=== PATIENT | male | born 1950 | race African-American/Black ===

== ENCOUNTER 2017-08-15 19:01 | Inpatient (IN) | payer MEDICARE ==
[~2017-08-15] VITALS: Ht 182.9 cm; Wt 74.7 kg
--- NOTE | ~2017-08-15 | EC ---
PATIENT:ADAIR GUO DATE OF SERVICE: 08/15/17 SEX: M MEDICAL RECORD: [id number] DATE OF : [birth year] LOCATION:D.M2 D.210 AGE OF PATIENT: 67 ADMISSION DATE: 08/15/17 REFERRING PHYSICIAN: INTERPRETING PHYSICIAN: ALETHA BRITO MD ECHOCARDIOGRAM REPORT ECHO CHARGES 4 ECHO COMPLETE CLINICAL DIAGNOSIS: CHF ECHOCARDIOGRAPHIC MEASUREMENTS (adult normal given) AC root (d.<3.7cm) 3.1 cm LV Septum d (<1.2 cm> 1.2 cm Valve Excursion 1.7 cm LV Septum (systole) 1.3 cm Left Atria (s.<4.0cm> 3.9 cm LVPW d(<1.2cm) 1.4 cm RV (d.<2.3cm) 4.8 cm LVPW (sytole) 1.5 cm LV diastole(<5.6CM) 6.6 cm MV E-F(>70mm/sec) cm LV systole 5.3 cm LVOT Diameter 1.5 cm MV exc.(>10mm) 1.6 cm Est.ejection fraction (50-75%) % Pericardial Effusion Y DOPPLER: LVIT cm/sec A 155 cm/sec E 109 cm/sec LA cm/sec RVSP 56 mmHg LVOT 98 cm/sec AOP1/2T m/s Asc. Ao 228 cm/sec RVOT 121 cm/sec RA cm/sec PA 134 cm/sec AV Gradient Peak 20.80mmHg AV Mean 14.9 mmHg AV Area 3.0 cm MV Gradient Peak 11.23mmHg MV Mean 5.23 mmHg MV Area cm COMMENTS: Photographic Machine Operator: Tae GILMAN Senior Gamemaster: 2 Dr. Rosenbaum TAPE# PACS DATE OF SERVICE: 08/16/2017 PROCEDURE: Transthoracic echocardiogram. FINDINGS: 1. Left ventricle appears to be mildly dilated. There are asynchronous wall motion abnormalities partially due to bundle branch block. Inflow characteristics are consistent with diastolic dysfunction. There is evidence of left ventricular hypertrophy. The overall ejection fraction is in the 25% to 30% range. The anterior septal area is hypokinetic and the septum has a D shape ECHOCARDIOGRAM REPORT [id number] ADAIR GUO to it, indicating the presence of possible pressure overload in the right ventricle. 2. The aortic valve is a normal trileaflet structure with no significant stenosis or regurgitation. 3. The mitral valve is difficult to visualize, but grossly normal. 4. The tricuspid valve has moderate tricuspid regurgitation. RVSP between 55 and 60 mmHg. 5. There is no significant pericardial effusion. 6. The pulmonic valve has trace to mild pulmonic insufficiency. 7. The right atrium is mildly enlarged. 8. The right ventricle is severely dilated and mildly hypokinetic. CONCLUSIONS: The patient has evidence of regional wall motion abnormality as well as left ventricular asynchronous wall motion. The patient also has diastolic dysfunction and evidence of moderate pulmonary hypertension and dilatation of the right-sided structures. The patient also is shown to have regional wall motion abnormalities. TRANSINT:[id number] Voice Confirmation ID: [id number] DOCUMENT ID: [id number] 08/27/2017 Edited to correct date of service, dm. ALETHA BRITO MD at 1001 CC: [id number] DICTATION DATE: 08/17/172054 GENERAL UTILITY WORKER: 08/18/17 0052 DIS IN 08/23/17 [address] [place] [address]
[2017-08-16 00:29] VITALS: BP 115/60
[2017-08-16 02:39] VITALS: BMI 21.7
[2017-08-16 04:29] VITALS: BP 127/71
[2017-08-16 07:55] VITALS: BP 145/67
[2017-08-16 11:03] VITALS: BMI 21.7
[2017-08-16 11:16] VITALS: Ht 182.9 cm; Wt 74.7 kg
[2017-08-16 11:45] LABS: BASOPHILS 0.1 % (0-2); EOSINOPHILS 1.6 % (0-7); HEMATOCRIT 24.8 % (42.0-54.0); IMMATURE GRANULOCYTES 0.2 % (0-5); LYMPHOCYTES 9.1 % (15-50); MCH 28.3 pg (26.0-34.0); MCHC 32.3 g/dL (31.0-37.0); MCV 87.6 fL (80.0-100.0); MONOCYTES 4.4 % (2-11); NEUTROPHILS 84.6 % (40-80); PLATELET COUNT 62 10x3/uL (130-400); RBC 2.83 10x6/uL (4.20-6.10); RDW 18.3 % (11.5-14.5); WBC 9.4 10x3/uL (4.8-10.8)
[2017-08-16 11:54] LABS: APTT 35.8 SECONDS (22.8-39.4); INR 1.08 (0.85-1.17); PROTIME 13.6 SECONDS (11.6-15.0)
[2017-08-16 12:04] LABS: PLATELET ESTIMATE DECREASED
[2017-08-16 12:10] VITALS: BP 139/75
[2017-08-16 12:10] LABS: ALBUMIN 1.9 g/dL (3.4-5.0); BILIRUBIN - TOTAL 0.5 mg/dL (0.2-1.3); CALCIUM 7.7 mg/dL (8.5-10.1); CARBON DIOXIDE 19.1 mmol/L (21.0-32.0); CREATININE - SERUM 2.3 mg/dL (0.6-1.3); MAGNESIUM - SERUM 1.7 mg/dL (1.8-2.4); POTASSIUM - SERUM 4.1 mmol/L (3.5-5.1); PROTEIN - SERUM 6.9 g/dL (6.4-8.2)
[2017-08-16 12:33] LABS: % SATURATION 93 % (15-55); IRON 164 ug/dl (35-150); TOTAL IRON BIND CAPACITY 176 ug/dl (260-445)
[2017-08-16 12:35] LABS: UNSAT IRON BIND CAPACITY 12 ug/dl (150-375)
[2017-08-16] MEDS ORDERED: LIPITOR10 MG PO (13:09)
[2017-08-16] MEDS ORDERED: CIPRO500 MG PO (13:09)
[2017-08-16] MEDS ORDERED: GLIMEPIRIDE2 MG PO (13:09)
[2017-08-16] MEDS ORDERED: MULTIPLE VITAMI1 TA1 PO (13:10)
[2017-08-16] MEDS ORDERED: OPTIVE EYE DROP30 ML EACH EYE (13:10)
[2017-08-16] MEDS ORDERED: VITAMIN D10000 UNI1 PO (13:12)
[2017-08-16] MEDS ORDERED: ZYVOX PREMIX600 MG IV (13:12)
[2017-08-16 13:49] LABS: APPEARANCE HAZY (CLEAR); BACTERIA MODERATE /hpf (NONE SEEN); BILIRUBIN NEGATIVE (NEGATIVE); COLOR YELLOW (YELLOW); EPITHELIAL CELLS 0-5 /hpf (0-5); GLUCOSE NEGATIVE (NEGATIVE); GRANULAR CAST 0-5 /lpf (NONE SEEN); KETONE NEGATIVE (NEGATIVE); MUCUS <1+ /lpf (NONE SEEN); NITRITE NEGATIVE (NEGATIVE); PROTEIN 1+ mg/dL (NEGATIVE); RED CELLS - URINE 0-5 /hpf (0-5); SPECIFIC GRAVITY 1.015 (1.005-1.020); UROBILINOGEN NORMAL (NORMAL)
[2017-08-16 14:59] VITALS: BP 117/64
[2017-08-16 20:59] VITALS: BP 103/52
[2017-08-17 00:36] VITALS: BP 114/64
[2017-08-17 05:06] LABS: ANION GAP 12.6 mmol/L (8-16); CALCIUM 7.1 mg/dL (8.5-10.1); CARBON DIOXIDE 20.7 mmol/L (21.0-32.0); CHOL - HDL RATIO 1.4 ratio (2.3-4.9); CREATININE - SERUM 2.3 mg/dL (0.6-1.3); LDL-HDL RATIO 0.3 ratio (1.5-3.5); POTASSIUM - SERUM 4.3 mmol/L (3.5-5.1)
[2017-08-17 05:17] VITALS: BP 123/68
[2017-08-17 05:22] LABS: BASOPHILS 0 % (0-2); EOSINOPHILS 0.9 % (0-7); HEMATOCRIT 20.8 % (42.0-54.0); IMMATURE GRANULOCYTES 0.3 % (0-5); MCHC 31.7 g/dL (31.0-37.0); MCV 88.1 fL (80.0-100.0); MONOCYTES 6.4 % (2-11); NEUTROPHILS 79.4 % (40-80); RBC 2.36 10x6/uL (4.20-6.10); RDW 18.4 % (11.5-14.5); WBC 7.8 10x3/uL (4.8-10.8)
[2017-08-17 05:24] LABS: HEMOGLOBIN 6.6 g/dL (13.5-17.5); PLATELET COUNT 48 10x3/uL (130-400)
[2017-08-17 08:39] VITALS: BP 118/64
[2017-08-17 10:19] LABS: FOLATE (FOLIC ACID) - SERUM 3.3 ng/mL (>3.0)
[2017-08-17 12:16] LABS: C-PEPTIDE 9.3 ng/mL (1.1-4.4)
[2017-08-17 14:23] VITALS: BP 125/72
[2017-08-17 16:53] VITALS: BP 128/70
[2017-08-17 20:38] VITALS: BP 126/69
[2017-08-18 00:18] VITALS: BP 119/64
[2017-08-18 05:48] VITALS: BP 135/77
[2017-08-18 06:03] LABS: BASOPHILS 0.1 % (0-2); EOSINOPHILS 1.1 % (0-7); HEMATOCRIT 24.2 % (42.0-54.0); HEMOGLOBIN 7.8 g/dL (13.5-17.5); IMMATURE GRANULOCYTES 0.2 % (0-5); LYMPHOCYTES 12.9 % (15-50); MCH 28.5 pg (26.0-34.0); MCHC 32.2 g/dL (31.0-37.0); MCV 88.3 fL (80.0-100.0); MONOCYTES 7.5 % (2-11); NEUTROPHILS 78.2 % (40-80); RBC 2.74 10x6/uL (4.20-6.10); RDW 17.9 % (11.5-14.5); WBC 8.1 10x3/uL (4.8-10.8)
[2017-08-18 06:05] LABS: PLATELET COUNT 44 10x3/uL (130-400)
[2017-08-18 06:21] LABS: ANION GAP 13.1 mmol/L (8-16); CALCIUM 7.9 mg/dL (8.5-10.1); CARBON DIOXIDE 21.9 mmol/L (21.0-32.0); CREATININE - SERUM 2.4 mg/dL (0.6-1.3)
[2017-08-18 09:08] VITALS: BP 181/76
[2017-08-18 11:52] VITALS: BP 187/70
[2017-08-18 16:32] VITALS: BP 104/67
[2017-08-18 20:00] VITALS: BP 128/74
[2017-08-18 20:16] LABS: HEMATOCRIT 25.2 % (42.0-54.0); HEMOGLOBIN 8.1 g/dL (13.5-17.5)
[2017-08-19 04:00] VITALS: BP 120/78
[2017-08-19 07:19] LABS: BASOPHILS 0.1 % (0-2); EOSINOPHILS 1.2 % (0-7); HEMOGLOBIN 8.3 g/dL (13.5-17.5); IMMATURE GRANULOCYTES 0.3 % (0-5); LYMPHOCYTES 14.5 % (15-50); MCH 28.4 pg (26.0-34.0); MCHC 31.9 g/dL (31.0-37.0); MEAN PLATELET VOLUME 9.9 fL (7.4-10.4); MONOCYTES 10.6 % (2-11); NEUTROPHILS 73.3 % (40-80); RBC 2.92 10x6/uL (4.20-6.10); RDW 17.4 % (11.5-14.5); WBC 7.4 10x3/uL (4.8-10.8)
[2017-08-19 07:22] LABS: PLATELET COUNT 86 10x3/uL (130-400)
[2017-08-19 07:32] LABS: INR 1.16 (0.85-1.17); PROTIME 14.3 SECONDS (11.6-15.0)
[2017-08-19 07:40] LABS: BILIRUBIN - TOTAL 0.6 mg/dL (0.2-1.3); CALCIUM 7.4 mg/dL (8.5-10.1); CARBON DIOXIDE 22.9 mmol/L (21.0-32.0); CHOL - HDL RATIO 1.5 ratio (2.3-4.9); CREATININE - SERUM 2.4 mg/dL (0.6-1.3); LDL-HDL RATIO 0.4 ratio (1.5-3.5); POTASSIUM - SERUM 3.9 mmol/L (3.5-5.1); PRE-ALBUMIN 15.4 mg/dL (18.0-35.7)
[2017-08-19 08:13] LABS: BILIRUBIN - DIRECT 0.29 mg/dL (0.00-0.30); BILIRUBIN - INDIRECT 0.31 mg/dL (0.00-1.00)
[2017-08-19 08:59] VITALS: BP 133/75
[2017-08-19 13:10] VITALS: BP 130/77
[2017-08-19 15:09] LABS: CORTISONE (COMPOUND E) 0.79 ug/dL (())
[2017-08-19 15:55] VITALS: BP 148/89
[2017-08-19 16:46] LABS: BILIRUBIN - DIRECT 0.42 mg/dL (0.00-0.30); BILIRUBIN - INDIRECT 0.27 mg/dL (0.00-1.00); BILIRUBIN - TOTAL 0.69 mg/dL (0.2-1.3)
[2017-08-19 17:02] LABS: HEMOGLOBIN 8.7 g/dL (13.5-17.5)
[2017-08-19 20:15] VITALS: BP 119/69
[2017-08-20 01:33] VITALS: BP 120/79
[2017-08-20 05:53] VITALS: BP 124/75
[2017-08-20 06:55] LABS: BASOPHILS 0.1 % (0-2); EOSINOPHILS 1.3 % (0-7); HEMATOCRIT 25.3 % (42.0-54.0); HEMOGLOBIN 8.2 g/dL (13.5-17.5); IMMATURE GRANULOCYTES 0.3 % (0-5); LYMPHOCYTES 15.1 % (15-50); MCH 28.5 pg (26.0-34.0); MCHC 32.4 g/dL (31.0-37.0); MCV 87.8 fL (80.0-100.0); MEAN PLATELET VOLUME 11.2 fL (7.4-10.4); NEUTROPHILS 70.2 % (40-80); PLATELET COUNT 80 10x3/uL (130-400); RBC 2.88 10x6/uL (4.20-6.10); RDW 17.4 % (11.5-14.5); WBC 6.9 10x3/uL (4.8-10.8)
[2017-08-20 07:13] LABS: ALBUMIN 1.8 g/dL (3.4-5.0); ANION GAP 13.5 mmol/L (8-16); BILIRUBIN - TOTAL 0.5 mg/dL (0.2-1.3); CALCIUM 7.5 mg/dL (8.5-10.1); CARBON DIOXIDE 21.3 mmol/L (21.0-32.0); CREATININE - SERUM 2.2 mg/dL (0.6-1.3); POTASSIUM - SERUM 3.8 mmol/L (3.5-5.1); PROTEIN - SERUM 6.8 g/dL (6.4-8.2)
[2017-08-20 08:07] VITALS: BP 141/88
[2017-08-20 11:28] VITALS: BP 144/90
[2017-08-20 15:22] VITALS: BP 141/84
[2017-08-20 18:29] LABS: HEMATOCRIT 30.2 % (42.0-54.0)
[2017-08-20 18:30] LABS: HEMOGLOBIN 9.9 g/dL (13.5-17.5)
[2017-08-20 19:00] VITALS: BP 116/64
[2017-08-21] VITALS: BP 134/81
[2017-08-21 04:00] VITALS: BP 124/70
[2017-08-21 05:27] LABS: BASOPHILS 0.1 % (0-2); EOSINOPHILS 0.9 % (0-7); HEMATOCRIT 28.6 % (42.0-54.0); HEMOGLOBIN 9.4 g/dL (13.5-17.5); IMMATURE GRANULOCYTES 0.2 % (0-5); LYMPHOCYTES 13.4 % (15-50); MCHC 32.9 g/dL (31.0-37.0); MCV 88.3 fL (80.0-100.0); MEAN PLATELET VOLUME 10.4 fL (7.4-10.4); MONOCYTES 10.9 % (2-11); NEUTROPHILS 74.5 % (40-80); PLATELET COUNT 74 10x3/uL (130-400); RBC 3.24 10x6/uL (4.20-6.10); RDW 17.3 % (11.5-14.5); WBC 8.2 10x3/uL (4.8-10.8)
[2017-08-21 05:44] LABS: ANION GAP 15.4 mmol/L (8-16); CALCIUM 8.5 mg/dL (8.5-10.1); CARBON DIOXIDE 21.5 mmol/L (21.0-32.0); CREATININE - SERUM 2.2 mg/dL (0.6-1.3); POTASSIUM - SERUM 3.9 mmol/L (3.5-5.1)
[2017-08-21 08:02] VITALS: BP 147/89
[2017-08-21 11:34] VITALS: BP 130/81
[2017-08-21 12:18] LABS: HAPTOGLOBIN 268 mg/dL (34-200)
[2017-08-21 13:48] LABS: HEMATOCRIT 28.5 % (42.0-54.0); HEMOGLOBIN 9.4 g/dL (13.5-17.5)
[2017-08-21 14:23] LABS: HEPATITIS C ANTIBODY <0.1 (0.0-0.9)
[2017-08-21 16:13] VITALS: BP 140/89
[2017-08-21 20:00] VITALS: BP 118/80
[2017-08-21 22:53] LABS: HEMATOCRIT 27.9 % (42.0-54.0); HEMOGLOBIN 9.2 g/dL (13.5-17.5)
[2017-08-22] VITALS (12 sets, daily range): BP systolic 125–155; BP diastolic 65–97
[2017-08-22 06:34] LABS: HEMOGLOBIN 9.9 g/dL (13.5-17.5)
[2017-08-22 06:44] LABS: INR 1.19 (0.85-1.17); PROTIME 14.7 SECONDS (11.6-15.0)
[2017-08-22 13:05] LABS: HEMATOCRIT 29.6 % (42.0-54.0); HEMOGLOBIN 9.5 g/dL (13.5-17.5)
[2017-08-22 20:09] LABS: HEMATOCRIT 30.8 % (42.0-54.0); HEMOGLOBIN 10.2 g/dL (13.5-17.5)
[2017-08-23 04:00] VITALS: BP 131/89
[2017-08-23 09:15] VITALS: BP 137/87
[2017-08-23 11:39] VITALS: BP 137/89
[2017-08-23 11:40] LABS: BASOPHILS 0.1 % (0-2); EOSINOPHILS 0.3 % (0-7); HEMATOCRIT 28.2 % (42.0-54.0); HEMOGLOBIN 9.3 g/dL (13.5-17.5); IMMATURE GRANULOCYTES 0.2 % (0-5); LYMPHOCYTES 9.7 % (15-50); MCH 29.2 pg (26.0-34.0); MCV 88.4 fL (80.0-100.0); MEAN PLATELET VOLUME 10.3 fL (7.4-10.4); MONOCYTES 5.2 % (2-11); NEUTROPHILS 84.5 % (40-80); PLATELET COUNT 97 10x3/uL (130-400); RBC 3.19 10x6/uL (4.20-6.10); RDW 17.4 % (11.5-14.5); WBC 9.7 10x3/uL (4.8-10.8)
[2017-08-23] MEDS ORDERED: LASIX40 MG PO (14:12)
[2017-08-23] MEDS ORDERED: FLORAJEN3 CAPS460 MG PO (14:12)
[2017-08-23] MEDS ORDERED: LEVAQUIN500 MG PO (14:13)
[2017-08-23 16:43] VITALS: BP 145/75
[2017-09-07] MEDS ORDERED: COZAAR50 MG PO (10:32)
== END 2017-08-23 18:10 | disposition home health service (06) | DRG 377 ==
LOC: D.M2 19:01
PROVIDERS: Family Medicine; General Practice; Internal Medicine Gastroenterology; Internal Medicine Nephrology
PROC: 3E0G8TZ Introduction of Destructive Agent into Upper GI, Via Natural or Artificial Opening Endoscopic (ICD-10-PCS; 2017-08-19)
PROC: 0W3P8ZZ Control Bleeding in Gastrointestinal Tract, Via Natural or Artificial Opening Endoscopic (ICD-10-PCS; 2017-08-19)
PROC: 3E0G8GC Introduction of Other Therapeutic Substance into Upper GI, Via Natural or Artificial Opening Endoscopic (ICD-10-PCS; principal; 2017-08-19 13:00)
PROC: 07DR3ZX Extraction of Iliac Bone Marrow, Percutaneous Approach, Diagnostic (ICD-10-PCS; 2017-08-22)
DX: K25.4 Chronic or unspecified gastric ulcer with hemorrhage (principal); I50.23 Acute on chronic systolic (congestive) heart failure; E11.52 Type 2 diabetes mellitus with diabetic peripheral angiopathy with gangrene; I96 Gangrene, not elsewhere classified; I13.0 Hypertensive heart and chronic kidney disease with heart failure and stage 1 through stage 4 chronic kidney disease, or unspecified chronic kidney disease; N17.9 Acute kidney failure, unspecified; E11.649 Type 2 diabetes mellitus with hypoglycemia without coma; E11.22 Type 2 diabetes mellitus with diabetic chronic kidney disease; N18.9 Chronic kidney disease, unspecified; E78.5 Hyperlipidemia, unspecified; J44.9 Chronic obstructive pulmonary disease, unspecified; E83.42 Hypomagnesemia; D64.9 Anemia, unspecified; N45.2 Orchitis; I27.20 Pulmonary hypertension, unspecified; D69.6 Thrombocytopenia, unspecified; K21.9 Gastro-esophageal reflux disease without esophagitis; I77.811 Abdominal aortic ectasia; K44.9 Diaphragmatic hernia without obstruction or gangrene; K26.9 Duodenal ulcer, unspecified as acute or chronic, without hemorrhage or perforation; K29.70 Gastritis, unspecified, without bleeding; K29.80 Duodenitis without bleeding; Z87.891 Personal history of nicotine dependence

== ENCOUNTER → 2017-09-07 07:03 | Outpatient (CLI) | payer MEDICARE ==
[~2017-09-07] VITALS: Ht 182.9 cm; Wt 77.3 kg
--- NOTE | ~2017-09-07 | HEMODYNAMI ---
PATIENT:ADAIR GUO MEDICAL RECORD: [id number] : [birth year] LOCATION:[facility] ADMISSION DATE: 09/07/17 Generatedon:09/07/201710:00 Patient name: ADAIR GUO Patient #: [id number] SSN: [id number] : 1950 Date of study: 09/07/2017 Page: Of Hemodynamic Procedure Report Patient Data Patient Demographics Procedure consent was obtained First Name: ADAIR Gender: Male Last Name: SARI : 1950 Patient #: [id number] Age: 67 year(s) Race: Black SSN: [id number] Additional ID: [id number] Contact details Address: [address] [place] [address] State: [place] City: [place] Zip code: [address] Admission Admission Data Admission Date: 09/07/2017 Admission Time: 7:03 Arrival Date: 09/07/2017 Arrival Time: 7:03 Admit Source: Other Insurance Payor: Medicare Height (in.): 72 BSA: 1.99 (m2) Height (cm.): 182.88 BMI: 23.06 (kg/m2) Weight (lbs.): 170 Weight (kg.): 77.11 Lab Results Lab Result Date: 09/07/2017 Lab Result Time: 0:00 Biochemistry Name Units Result Min Max BUN mg/dl 34 --(----)-* 7 18 Creatinine mg/dl 2 --(----)-* 0.6 1.3 CBC Name Units Result Min Max Hemoglobin g/dl 9.2 *-(----)-- 13.5 17.5 Procedure Procedure Types Cath Procedure Diagnostic Procedure C [facility] w/Coronaries Sedation Charges Moderate Sedation up to 15 minutes Procedure Description Procedure Date Procedure Date: 09/07/2017 Procedure Start Time: 9:37 Procedure End Time: 9:53 Procedure Staff Name Function Álvaro Chawla MD Performing Physician Leni Choe RT Monitor Vikki Vaughn RT Scrdorota Zelaya RN Nurse Procedure Data Cath Procedure Fluoroscopy Diagnostic fluoroscopy Total fluoroscopy Time: 2.4 time: 2.4 min min Diagnostic fluoroscopy Total fluoroscopy dose: 409 dose: 409 mGy mGy Contrast Material Contrast Material Type Amount (ml) Isovue 300 64 Entry Location Entry Primary Successful Side Size Upsize Upsize Entry Closure Succes sful Closure Location (Fr) 1 (Fr) 2 (Fr) Remarks Device Remarks Femoral Right 5 Fr Exoseal artery Estimated blood loss: 5 ml Diagnostic catheters Device Type Used For End Catheter Placement MULTIPACK JL 4.0 5Fr Left Coronary catheter Angiography MULTIPACK 3DRC 5Fr Right Coronary catheter Angiography MULTIPACK Pigtail 5 Fr LV Angiography catheter Procedure Complications No complications Procedure Medications Medication Administration Route Dosage Oxygen NC 2 l/min Lidocaine 2% added to field 20 Heparin Flush Bag added to field 2 bags (1000units/500ml NS) 0.9% NaCl I.V. 100 ml/hr Versed I.V. 1 mg Fentanyl I.V. 25 mcg Hemodynamics Rest BSA: 1.99 (m2) HGB: 9.2 (g/dl) O2 Consumption: Estimated: 236.44 (ml/min) O2 Con sumption indexed: Estimated:118.81 (ml/min/m) Heart Rate: 77 (bpm) Pressure Samples Time Site Value (mmHg) Purpose Heart Use Rate(bpm) 9:48 LV 133/9,24 EDP 77 9:48 AO 141/79(105) Pullback 77 9:48 LV 128/18,23 Pullback 77 Gradients Valve Time Site 1 Site 2 Mean SEP/DFP Peak To Heart Use (mmHg) (sec/min) Peak Rate (mmHg) (bpm) Aortic 9:48 LV AO 0 6 0 77 128/18,23 141/79(105) Calculations Valve P-P Mean Valve Index Valve Source Name Gradient Area Flow (cm2) Aortic 0 0 0 0 Snapshots Pre Cath Intra NCS Post Cath Vital Signs Time Heart Resp SPO2 etCO2 NIBP (mmHg) Rhythm Pain Sedation Rate (ipm) (%) (mmHg) Status Level (bpm) 9:20:28 79 16 100 24 144/88(125) NSR 0 (11) 10(A) , No pain 9:24:38 79 15 100 27.7 151/101(135) NSR 0 (11) 10(A) , No pain 9:28:50 78 16 100 25.5 153/100(136) NSR 0 (11) 10(A) , No pain 9:33:02 79 16 100 25.5 141/105(130) NSR 0 (11) 10(A) , No pain 9:37:12 78 16 100 44.2 134/97(120) NSR 0 (11) 10(A) , No pain 9:41:22 77 15 100 17.2 139/85(123) NSR 0 (11) 9(A) , No pain 9:45:32 76 22 100 27 129/92(111) NSR 0 (11) 9(A) , No pain 9:49:47 76 22 100 21.7 132/90(113) NSR 0 (11) 9(A) , No pain 9:55:13 77 24 98 5.2 164/139(157) NSR 0 (11) 10(A) , No pain Medications Time Medication Route Dose Verified Delivered Reason Notes Effec tiveness by by 9:22:41 Oxygen NC 2 Álvaro Buffie used for l/min [place] Zelaya RN procedure 9:22:47 Lidocaine 2% added 20ml Álvaro Álvaro for local to vial [place] Chawla MD anesthetic field FREEDMAN 9:22:53 Heparin Flush added 2 Álvaro Álvaro used for Bag to bags Denton Chawla MD procedure (1000units/500ml field FREEDMAN NS) 9:23:02 0.9% NaCl I.V. 100 Álvaro Buffie Per ml/hr Denton Zelaya RN physician 9:38:55 Versed I.V. 1 mg Álvaro Buffie for Denton Zelaya RN sedation 9:39:01 Fentanyl I.V. 25 [place]o [place] [facility] [place] Zelaya RN sedation Procedure Log Time Note 8:48:50 Informed consent obtained and on chart 8:49:38 Vikki Vaughn RT(R) sent for patient. Start room use. 8:49:39 Time tracking: Regular hours 8:49:43 Plan of Care:Hemodynamics will remain stable., Cardiac rhythm will remain stable., Comfort level will be maintained., Respiratory function will remain adequate., Patient/ family verbilizes understanding of procedure., Procedure tolerated without complication., Recovers from procedure without complications.. 8:52:47 Admit Source: Other 8:52:49 Arrival Date: 09/07/2017 7:03:00 AM 8:52:59 Insurance Payor : Medicare 8:53:12 Patient Height : 72 inches 8:53:15 Patient Weight : 170 lbs 8:54:39 Lab Result : Creatinine 2 mg/dl 8:54:39 Lab Result : BUN 34 mg/dl 8:54:39 Lab Result : Hemoglobin 9.2 g/dl 9:10:44 Patient received from Pre/Post Procedure Room to CCL 2 Alert and oriented. Tansferred to table in Supine position. 9:10:45 Warm blankets applied, and david hugger turned on for patient comfort. 9:10:46 Correct patient and procedure confirmed by team. 9:10:47 ECG and BP/O2 sat monitors applied to patient. 9:19:18 Vital chart was started 9:19:20 Baseline sample Acquired. 9:19:26 Rhythm: sinus rhythm 9:19:33 Full Disclosure recording started 9:19:46 H&P Date Dictated: 09/07/2017 Within 30 days and on chart., H&P Addendum completed by physician on day of procedure. (MUST COMPLETE FOR ALL OUTPATIENTS). 9:19:48 Pre-procedure instructions explained to patient. 9:19:48 Pre-op teaching completed and patient verbalized understanding. 9:19:49 Family in waiting room. 9:19:50 Patient NPO since Midnight. 9:19:53 Is the patient allergic to Iodine/contrast media? No. 9:19:54 Was the patient premedicated? No 9:19:56 Is patient on blood thinner?Yes 9:19:59 ACC The patient was administered the following blood thiners within the last 24 hours: ACCPlavix 9:20:01 Patient diabetic? Yes. 9:20:02 If diabetic: On Metformin? No 9:22:41 Oxygen 2 l/min NC was administered by Nicholas Zelaay RN; used for procedure; 9::47 Lidocaine 2% 20ml vial added to field was administered by Álvaro Chawla MD; for local anesthetic; 9:22:53 Heparin Flush Bag (1000units/500ml NS) 2 bags added to field was administered by Álvaro Chawla MD; used for procedure; 9:23:02 0.9% NaCl 100 ml/hr I.V. was administered by Nicholas Zelaya RN; Per physician; 9:24:21 Previous problem with sedation/anesthesia? No ? 9:24:23 Snore? Yes 9:24:25 Sleep apnea? No 9:24:26 Deviated septum? No 9:24:27 Opens mouth fully? Yes 9:24:28 Sticks out tongue? Yes 9:24:32 Airway obstruction? Yes chf 9:24:34 Dentures? No ? 9:25:09 Patient pain scale 0/10 ?. 9:25:15 IV patent on arrival in left forearm with 0.9% NaCl at [facility]. 9:25:17 Lab results completed and on chart. 9:25:22 Right groin area was prepped with chlora-prep and draped in sterile fashion 9:25:23 Alarms reviewed by R. N. 9:25:24 Sharps counted by scrub and verified by R.N. 9:32:02 Zero performed for pressure channel P1 9:37:01 Physician arrived 9:37:01 --------ALL STOP TIME OUT------ 9:37:02 Final Timeout: patient, procedure, and site verified with staff and physician. All members of the team are in agreement. 9:37:03 Right groin site verified by team. 9:37:06 Physical assessment completed. ASA score P 2 - A patient with mild systemic disease as per Álvaro Chawla MD. 9:37:10 Sedation plan: IV Moderate Sedation Medication:Versed, Fentanyl 9:37:13 Procedure started. 9:37:16 Local anesthetic to right femoral artery with Lidocaine 2% by Álvaro Chawla MD.INITIAL ACCESS ONLY 9:37:18 Access obtained with 4Fr micropunture. 9:38:13 Use device set Femoral Dx 9:38:15 ACIST Syringe (26263) opened to sterile field. 9:38:15 Bag Decanter (2002) opened to sterile field. 9:38:15 Medline Cath Pack ([id number]) opened to sterile field. 9:38:16 SHEATH 5FR Potter (VEX073) opened to sterile field. 9:38:16 DIAGNOSTIC WIRE .035 260cm J wire (740522) opened to sterile field. 9:38:31 ACIST Hand Control (84522) opened to sterile field. 9:38:32 ACIST Manifold (07582) opened to sterile field. 9:38:32 DIAGNOSTIC Multipack 5Fr catheter set (UI7715) opened to sterile field. 9:38:33 Tegaderm 4 x 4 (1626W) opened to sterile field. 9:38:55 Versed 1 mg I.V. was administered by Nicholas Zelaya RN; for sedation; 9:39:01 Fentanyl 25 mcg I.V. was administered by Nicholas Zelaya RN; for sedation; 9:39:29 A 5 Fr sheath was inserted into the Right Femoral artery 9:40:05 A MULTIPACK JL 4.0 5Fr catheter was advanced over the wire and used for Left Coronary Angiography. 9:40:29 LCA angiography performed. 9:40:32 Injector settings: Ml/sec: 3, Volume: 6, 9:42:01 Catheter removed. 9:42:10 A MULTIPACK 3DRC 5Fr catheter was advanced over the wire and used for Right Coronary Angiography. 9:44:09 RCA angiography performed. 9:44:12 Injector settings: Ml/sec: 3, Volume: 6, 9:45:53 Bilateral renal angiography performed. 9:46:10 Injector settings: Ml/sec: 3, Volume: 6, 9:46:46 Catheter removed. 9:46:53 A MULTIPACK Pigtail 5 Fr catheter was advanced over the wire and used for LV Angiography. 9:48:04 LV hemodynamics recorded. 9:48:05 LV gram done using PADILLA 9:48:08 Injector settings: Ml/sec: 5, Volume: 15, 9:48:57 EF : 15 % 9:49:05 Catheter removed. 9:51:17 EXOSEAL 5Fr (EX500) opened to sterile field. 9:51:53 Sheath removed intact; hemostasis achieved with Exoseal to the Right Femoral artery. 9:51:55 Procedure ended.(Physican Out) 9:52:47 Fluoroscopy time 02.40 minutes. 9::52 Fluoroscopy dose: 409 mGy 9:52:52 Flurop Dose total: 409 9:52:57 Contrast amount:Isovue 300 64ml. 9:52:59 Sharps counted by scrub and verified by R.N. 9:53:02 Insertion/operative site no bleeding no hematoma. 9:53:06 Post-op/insertion site Right Femoral artery dressed using a 4 x 4 and Tegaderm. 9:53:09 Post right femoral artery:stable 9:53:10 Post Procedure Pulses reassessed and unchanged 9:53:12 Post procedure rhythm: unchanged. 9:53:16 Estimated blood loss: 5 ml 9:53:17 Post procedure instruction explained to patient.Patient verbalizes understanding. 9:53:18 Patient needs reinforcement of post procedure teaching. 9:53:29 Procedure type changed to Cath procedure, Diagnostic procedure, LHC, LHC w/Coronaries, Sedation Charges, Moderate Sedation up to 15 minutes 9:53:30 Procedure and supply charges have been captured, reviewed, submitted and are correct. 9:53:35 Procedure Complication : No complications 9:53:37 Vital chart was stopped 9:53:38 See physician's report for complete and final results. 9:53:41 Report given to Pre/Post Procedure Room. 9:53:44 Patient transfered to Pre/Post Procedure Room with Stretcher. 9:53:46 Procedure ended. 9:53:46 Full Disclosure recording stopped 9:53:50 End room use (Document Last) Device Usage Item Name Manufacture Quantity Catalog Hospital Part Current Minimal L ot# / Number Charge Number Stock Stock Serial# Code ACIST Acist 1 [id number] [id number] 781535 [id number] 20 Syringe Medical (44726) Systems Inc Bag Microtek 1 891540 39540 220023 5 Decanter Medical Inc. () Medline Cardinal 1 [id number] 042875 93457 851242 5 Cath Pack Health ([id number]) SHEATH 5FR Terumo 1 GSZ123 343836 836266 836834 40 Potter (NGA298) DIAGNOSTIC St Neeraj 1 737805 245310 802110 877691 30 WIRE .035 260cm J wire (689023) ACIST Hand Acist 1 51288 421038 225428 265074 5 Control Medical (00444) Systems Inc ACIST Acist 1 66578 258926 776217 200681 5 Manifold Medical (89614) Systems Inc DIAGNOSTIC Cardinal 1 ER1738 490814 83757 006854 30 Multipack Health 5Fr catheter set (LA1567) Tegaderm 4 3M 1 1626W 411648 151241 829149 5 x 4 (1626W) MULTIPACK Cardinal 1 202854 5 JL 4.0 5Fr Health catheter MULTIPACK Cardinal 1 144124 5 3DRC 5Fr Health catheter MULTIPACK Cardinal 1 854180 5 Pigtail 5 Health Fr catheter EXOSEAL 5Fr Cardinal 1 EX500 045289 695185 910142 10 (EX500) Health Signature Audit [place] Stage Time Signature Unsigned Intra-Procedure 09/07/2017 Leni Choe 10:00:08 AM RT(R) Signatures Monitor : Leni Choe RT Signature : Date : Time : [id number] [place] [address]
[~2017-09-07 07:03] MED LIST: CIPRO500 MG PO; COZAAR50 MG PO; FLORAJEN3 CAPS460 MG PO; GLIMEPIRIDE2 MG PO; LASIX40 MG PO; LEVAQUIN500 MG PO; LIPITOR10 MG PO; MULTIPLE VITAMI1 TA1 PO; OPTIVE EYE DROP30 ML EACH EYE; VITAMIN D10000 UNI1 PO; ZYVOX PREMIX600 MG IV
[2017-09-07 07:48] VITALS: BP 140/92; Ht 182.9 cm; Wt 77.3 kg
[2017-09-07 08:13] LABS: BASOPHILS 0.2 % (0-2); EOSINOPHILS 0.3 % (0-7); HEMATOCRIT 28.2 % (42.0-54.0); HEMOGLOBIN 9.2 g/dL (13.5-17.5); IMMATURE GRANULOCYTES 0.3 % (0-5); LYMPHOCYTES 10.6 % (15-50); MCHC 32.6 g/dL (31.0-37.0); MCV 91.9 fL (80.0-100.0); MONOCYTES 6.3 % (2-11); NEUTROPHILS 82.3 % (40-80); RBC 3.07 10x6/uL (4.20-6.10); RDW 21.1 % (11.5-14.5); WBC 10.7 10x3/uL (4.8-10.8)
[2017-09-07 08:16] LABS: ANION GAP 16.1 mmol/L (8-16); CARBON DIOXIDE 24.9 mmol/L (21.0-32.0)
[2017-09-07 08:31] LABS: PLATELET COUNT 213 10x3/uL (130-400)
== END | disposition home or self-care (01) ==
LOC: D.CATH 07:03
PROVIDERS: Internal Medicine Cardiovascular Disease
DX: I42.9 Cardiomyopathy, unspecified (principal); I50.9 Heart failure, unspecified; I20.0 Unstable angina; Z01.812 Encounter for preprocedural laboratory examination

== ENCOUNTER 2017-12-11 06:31 | Outpatient (CLI) | payer MEDICARE ==
[~2017-12-11] VITALS: Ht 182.9 cm; Wt 63.6 kg
--- NOTE | ~2017-12-11 | HEMODYNAMI ---
PATIENT:ADAIR GUO MEDICAL RECORD: [id number] : 48 LOCATION:[facility] ADMISSION DATE: 12/11/17 Generatedon:12/11/20179:21 Patient name: ADAIR GUO Patient #: [id number] SSN: [id number] : 1950 Date of study: 12/11/2017 Page: Of Hemodynamic Procedure Report Patient Data Patient Demographics Procedure consent was obtained First Name: ADAIR Gender: Male Last Name: SARI : 1950 Patient #: [id number] Age: 67 year(s) Race: Black SSN: [id number] Additional ID: [id number] Contact details Address: [address] [place] [address] State: [place] City: [place] Zip code: [address] Past Medical History Allergies: No known allergies Admission Admission Data Admission Date: 12/11/2017 Admission Time: 6:31 Procedure Procedure Types Cath Procedure Diagnostic Procedure PPM/ICD Internal Cardiac Defib Dual Procedure Description Procedure Date Procedure Date: 12/11/2017 Procedure Start Time: 8:45 Procedure Staff Name Function Álvaro Chawla MD Performing Physician Darshana Isaac RT Monitor Nicholas Zelaya RN Nurse Boubacar Juan RT Scrub Procedure Data Cath Procedure Fluoroscopy Diagnostic fluoroscopy Total fluoroscopy Time: 0 time: 0 min min Diagnostic fluoroscopy Total fluoroscopy dose: 33 dose: 33 mGy mGy Contrast Material Contrast Material Type Amount (ml) Visipaque 320 10 Estimated blood loss: 5 ml Procedure Complications No complications Procedure Medications Medication Administration Route Dosage Ancef (1Gm/50ml NS) I.V.P.B 1 g Oxygen NC 2 l/min Lidocaine 1% added to field 20 Ancef Irrigation Topical 1 g (1gm/500ml NS) Versed I.V. 1 mg Fentanyl I.V. 25 mcg Fentanyl I.V. 25 mcg Versed I.V. 0.5 mg Fentanyl I.V. 25 mcg Hemodynamics Rest Heart Rate: 87 (bpm) Snapshots Pre Cath Intra NCS Post Cath Vital Signs Time Heart Resp SPO2 etCO2 NIBP (mmHg) Rhythm Pain Sedation Rate (ipm) (%) (mmHg) Status Level (bpm) 8:24:33 87 13 96 36.8 146/89(122) NSR 0 (11) 10(A) , No pain 8:28:27 87 18 94 38.3 145/93(122) NSR 0 (11) 10(A) , No pain 8:32:18 87 14 96 39 148/96(119) NSR 0 (11) 10(A) , No pain 8:36:14 85 16 100 43.5 137/82(113) NSR 0 (11) 10(A) , No pain 8:40:07 84 15 100 40.5 137/83(114) NSR 0 (11) 9(A) , No pain 8:44:01 83 15 100 35.3 139/78(111) NSR 0 (11) 9(A) , No pain 8:47:54 83 15 99 40.5 135/84(118) NSR 0 (11) 10(A) , No pain 8:51:48 82 14 98 39.8 130/77(100) NSR 0 (11) 9(A) , No pain 8:55:37 81 14 98 39.8 129/83(110) NSR 0 (11) 9(A) , No pain 8:59:28 81 14 98 37.5 125/77(100) NSR 0 (11) 9(A) , No pain 9:03:18 80 15 98 35.3 122/77(102) NSR 0 (11) 9(A) , No pain 9:07:07 57 17 99 35.3 127/81(109) NSR 0 (11) 9(A) , No pain 9:10:57 80 16 100 33.8 129/78(106) NSR 0 (11) 10(A) , No pain 9:15:17 83 15 100 32.3 138/91(114) NSR 0 (11) 10(A) , No pain 9:19:08 82 10 36 131/88(112) NSR 0 (11) 10(A) , No pain Medications Time Medication Route Dose Verified Delivered Reason Notes Effective ness by by 8:22:29 Ancef I.V.P.B 1 g Álvaro Buffie used for (1Gm/50ml Denton Zelaya RN procedure NS) 8:26:52 Oxygen NC 2 Álvaro Buffie used for l/min Denton Zelaya RN procedure 8:27:03 Lidocaine added 20ml Álvaro Álvaro for local 1% to vial Denton Chawla MD anesthetic field x 2 8:27:21 Ancef Topical 1 g Álvaro Álvaro used for Irrigation Denton Chawla MD procedure (1gm/500ml NS) 8:37:04 Versed I.V. 1 mg Álvaro Buffie for Denton Zelaya RN sedation 8:37:10 Fentanyl I.V. 25 Álvaro Buffie for mcg Denton Zelaya RN sedation 8:45:52 Fentanyl I.V. 25 Álvaro Buffie for mcg Denton Zelaya RN sedation 8:57:18 Versed I.V. 0.5 Álvaro Buffie for mg Denton Zelaya RN sedation 8:57:25 Fentanyl I.V. 25 Álvaro Buffie for mcg Denton Zelaya RN sedation Procedure Log Time Note 8:00:39 Nicholas Zelaya RN sent for patient. Start room use. 8:06:45 Time tracking: Regular hours (M-F 7:00 - 5:00) 8:06:49 Plan of Care:Hemodynamics will remain stable., Cardiac rhythm will remain stable., Comfort level will be maintained., Respiratory function will remain adequate., Patient/ family verbilizes understanding of procedure., Procedure tolerated without complication., Recovers from procedure without complications.. 8:11:46 Patient received from Pre/Post Procedure Room to [facility] 3 Alert and oriented. Tansferred to table in Supine position. 8:11:48 Warm blankets applied, and david hugger turned on for patient comfort. 8:11:48 Correct patient and procedure confirmed by team. 8:11:50 Signed procedure consent form obtained from patient. 8:11:51 ECG and BP/O2 sat monitors applied to patient. 8:22:29 Ancef (1Gm/50ml NS) 1 g I.V.P.B was administered by Nicholas Zelaya RN; used for procedure; 8:23:47 Vital chart was started 8:26:47 Rhythm: sinus rhythm 8:26:48 Full Disclosure recording started 8:26:52 Oxygen 2 l/min NC was administered by Nicholas Zelaya RN; used for procedure; 8:27:03 Lidocaine 1% 20ml vial x 2 added to field was administered by Álvaro Chawla MD; for local anesthetic; 8:27:21 Ancef Irrigation (1gm/500ml NS) 1 g Topical was administered by Álvaro Chawla MD; used for procedure; 8:27:38 H&P Date Dictated: 12/06/2017 Within 30 days and on chart., H&P Addendum completed by physician on day of procedure. (MUST COMPLETE FOR ALL OUTPATIENTS). 8:27:40 Pre-procedure instructions explained to patient. 8:27:40 Pre-op teaching completed and patient verbalized understanding. 8:27:43 Family in patients room. 8:27:45 Patient NPO since Midnight. 8:28:01 Patient allergic to No known allergies 8:28:03 Is the patient allergic to Iodine/contrast media? No. 8:28:06 Is patient on blood thinner?No 8:28:10 Patient diabetic? Yes. 8:28:11 If diabetic: On Metformin? No 8:28:14 Previous problem with sedation/anesthesia? No ? 8:28:16 Snore? No 8:28:17 Sleep apnea? No 8:28:18 Deviated septum? No 8:28:19 Opens mouth fully? Yes 8:28:20 Sticks out tongue? Yes 8:28:27 Airway obstruction? Yes COPD 8:28:29 Dentures? No ? 8:28:36 Patient pain scale 0/10 ?. 8:28:54 IV patent on arrival in left forearm with 0.9% NaCl at O. 8:28:59 Lab results completed and on chart. 8:29:06 Left chest area was prepped with chlora-prep and draped in sterile fashion 8:29:07 Alarms reviewed by R. N. 8:29:08 Sharps counted by scrub and verified by R.N. 8:29:35 Medtronic sales representative womens health Howard Sanchez present for procedure. 8:29:46 Pre sharps counted by scrub and verified by RN: Sutures: 2; Sponges: 5; Stick needles: 1; Skin needles: 2; Blade: 1; Cautery: 1 8:29:55 Grounding pad site Right thigh. 8:29:56 Grounding pad site free from injury. 8:31:40 Baseline sample Acquired. 8:31:53 MICROPUNCTURE 4FR Cook (P64669) opened to sterile field. 8:31:54 Tegaderm 4 x 4 (1626W) opened to sterile field. 8:31:55 Stapler Skin 35W Proximate Plus (PMW35) opened to sterile field. 8:31:57 Cautery Tip Business System Consultant opened to sterile field. 8:31:58 Cautery Pushbutton Pencil opened to sterile field. 8:31:59 2-0 Silk 685H opened to sterile field. 8:32:00 2-0 Vicryl Plus OUN094 opened to sterile field. 8:32:11 Immobilizer Sling Medium opened to sterile field. 8:36:23 Final Timeout: patient, procedure, and site verified with staff and physician. All members of the team are in agreement. 8:36:26 Left chest site verified by team. 8:36:29 Physical assessment completed. ASA score P 3 - A patient with severe systemic disease as per Álvaro Chawla MD. 8:36:32 Sedation plan: IV Moderate Sedation Medication:Versed, Fentanyl 8:37:04 Versed 1 mg I.V. was administered by Nicholas Zelaya RN; for sedation; 8:37:10 Fentanyl 25 mcg I.V. was administered by Nicholas Zelaya RN; for sedation; 8:45:19 Lidocaine 1% was administered to left subclavicular area by Álvaro Chawla MD . 8:45:52 Fentanyl 25 mcg I.V. was administered by Nicholas Zelaya RN; for sedation; 8:47:07 Incision made to left subclavicular area. 8:53:47 Generator pocket made/opened. 8:55:30 Access obtained with 4Fr micropunture. 8:56:12 Left subclavian vein accessed with 9Fr Peel Away Sheath. 8:57:18 Versed 0.5 mg I.V. was administered by Nicholas Zelaya RN; for sedation; 8:57:25 Fentanyl 25 mcg I.V. was administered by Nicholas Zelaya RN; for sedation; 8:59:16 Procedure type changed to Cath procedure, Diagnostic procedure, PPM/ICD, Internal Cardiac Defib Dual 9:00:44 Medtronic 6798F79 ICD Lead opened to sterile field. 9:01:39 Ventricular lead inserted and advanced. 9:01:47 Ventricular lead tested. 9:03:42 Ventricular lead attachment was completed with 2-0 silk. 9:06:07 AICD was attached to lead(s) and inserted into pocket. 9:06:44 Subcutaneous closure was completed with 2-0 vicryl. 9:07:02 MICROPUNCTURE 4FR Cook (B33219) opened to sterile field. 9:11:13 VISIA Single Chamber ICD DVB1D4 opened to sterile field. 9:13:39 Skin closure was completed with 35mm Garrick. 9:13:45 Procedure ended.(Physican Out) 9:13:59 Lt Chest incision was dressed with gauze eyepad and tegaderm. 9:14:10 Contrast amount:Visipaque 320 10ml. 9:14:16 Fluoroscopy time 00.00 minutes. 9:14:22 Fluoroscopy dose: 33 mGy 9:14:22 Flurop Dose total: 33 9:14:23 Sharps counted by scrub and verified by R.N. 9:14:57 Post sharps counted by scrub and verified by RN: Sutures: 2; Sponges: 5; Stick needles: 1; Skin needles: 2; Blade: 1; Cautery: 1 9:15:11 Insertion/operative site no bleeding no hematoma. 9:15:17 Post procedure rhythm: unchanged. 9:15:20 Estimated blood loss: 5 ml 9:15:25 Post-procedure physical assessment completed. ASA score P 3 - A patient with severe systemic disease as per Álvaro Chawla MD. 9:15:34 Post Chest area:stable, clean and dry 9:16:21 Procedure Complication : No complications 9:20:08 Post procedure instruction explained to patient.Patient verbalizes understanding. 9:20:09 Patient needs reinforcement of post procedure teaching. 9:20:29 Procedure and supply charges have been captured, reviewed, submitted and are correct. 9:20:29 Vital chart was stopped 9:20:30 See physician's report for complete and final results. 9:20:34 Report given to Pre/Post Procedure Room. 9:20:55 CALLED FOR PCU BED. NO BEDS AVAILABLE AT THIS TIME. 9:21:00 Patient transfered to Pre/Post Procedure Room with Stretcher. 9:21:21 End room use (Document Last) Device Usage Item Name Manufacture Quantity Catalog Hospital Part Current Minimal Lot# / Number Charge Number Stock Stock Serial# Code MICROPUNCTURE [employer] 2 [id number] 5 4FR [employer]en ([id number]) Tegaderm 4 x 3M 1 1626W 001710 062336 [id number] 5 4 (1626W) Stapler Skin Unknown 1 PMW35 [id number] 445389 [id number] 5 35W Proximate Plus (PMW35) Cautery Tip Microtek 1 [id number] 039923 327539 327061 5 [employer] Cautery Microtek 1 [id number] 09573 806480 5 [facility] [employer] [facility] Pencil 2-0 Silk 685H Ethicon 1 685H 342363 04988 184470 5 2-0 Vicryl Ethicon 1 [id number] 112285 730430 000703 5 Plus [id number] Immobilizer Kinards 1 [id number] 329279 412445 [id number] 5 Sling Medium Health Medtronic Medtronic 1 [id number] 041161 306282 663336 5 [id number] 2096S14 ICD 2018-03-08 Lead VISIA Single Medtronic 1 [id number] 021049 200690 [id number] 5 [id number] Chamber ICD 2019-04-14 DVB1D4 Signature Audit [place] Stage Time Signature Unsigned Intra-Procedure 12/11/2017 Darshana 9:21:50 AM Counts RT(R) Signatures Monitor : Darshana Signature : Counts RT Date : Time : [id number] [place] [address]
[2017-12-11 07:14] VITALS: BP 121/82; BMI 19.0
[2017-12-11 07:18] LABS: HEMATOCRIT 32.4 % (42.0-54.0); HEMOGLOBIN 10.4 g/dL (13.5-17.5); MCH 31.3 pg (26.0-34.0); MCHC 32.1 g/dL (31.0-37.0); MCV 97.6 fL (80.0-100.0); MEAN PLATELET VOLUME 11.7 fL (7.4-10.4); RBC 3.32 10x6/uL (4.20-6.10); RDW 17.8 % (11.5-14.5); WBC 5.2 10x3/uL (4.8-10.8)
[2017-12-11 07:33] LABS: ANION GAP 12.4 mmol/L (8-16); CALCIUM 8.6 mg/dL (8.5-10.1); CARBON DIOXIDE 26.1 mmol/L (21.0-32.0); CREATININE - SERUM 2.2 mg/dL (0.6-1.3); POTASSIUM - SERUM 3.5 mmol/L (3.5-5.1)
[2017-12-11 07:40] LABS: APTT 28.3 SECONDS (22.8-39.4); INR 0.94 (0.85-1.17); PROTIME 12.2 SECONDS (11.6-15.0)
[2017-12-11] MEDS ORDERED: CARDIZEM LA120 MG PO (08:31)
[2017-12-11] MEDS ORDERED: HUMULIN R100 U/ML SC (08:32)
[2017-12-11] MEDS ORDERED: FERROUS SULFAT325 MG PO (08:32)
[2017-12-11] MEDS ORDERED: ASCORBIC ACID500 MG PO (08:33)
[2017-12-11] MEDS ORDERED: KLOR-CON M2020 MEQ PO (08:34)
[2017-12-11] MEDS ORDERED: CYCLOBENZAPRINE10 MG PO (08:35)
[2017-12-11] MEDS ORDERED: ENTRESTO 24 MG1 EACH PO (08:35)
[2017-12-11] MEDS ORDERED: PROAIR HFA8.5 GM INH (08:37)
[2017-12-11 14:09] VITALS: Ht 182.9 cm; Wt 63.6 kg
[2017-12-11 17:23] VITALS: BP 148/86
[2017-12-11 20:43] VITALS: BP 113/80
[2017-12-12 00:28] VITALS: BP 133/83
[2017-12-12 00:34] VITALS: BP 133/83
[2017-12-12 04:44] VITALS: BP 140/87
[2017-12-12 08:07] VITALS: BP 130/85
[2017-12-12] MEDS ORDERED: KEFLEX500 MG PO (08:40)
[2017-12-12 12:19] VITALS: BP 152/91
== END 2017-12-12 13:51 | disposition home or self-care (01) ==
LOC: OBSVTIME → D.CATH 06:31 → D.M2 13:00 → D.CATH 13:01 → D.M2 13:01 → OBSVTIME 16:00 → D.CATH 12-12 13:51 → D.M2 12-12 13:51
PROVIDERS: Internal Medicine Cardiovascular Disease
DX: I25.5 Ischemic cardiomyopathy (principal); Z79.4 Long term (current) use of insulin; Z79.899 Other long term (current) drug therapy; Z01.812 Encounter for preprocedural laboratory examination

== ENCOUNTER → 2018-03-21 08:24 | Outpatient (CLI) | payer MEDICARE ==
[2017-12-11 14:09] VITALS: BMI 19.0
--- NOTE | ~2018-03-21 | EC ---
PATIENT:ADAIR GUO DATE OF SERVICE: 03/21/18 SEX: M MEDICAL RECORD: [id number] DATE OF : [birth year] LOCATION:[facility] AGE OF PATIENT: 67 ADMISSION DATE: 03/21/18 REFERRING PHYSICIAN: INTERPRETING PHYSICIAN: ALETHA BRITO MD ECHOCARDIOGRAM REPORT ECHO CHARGES 4 ECHO COMPLETE Date: 03/21/18 CLINICAL DIAGNOSIS: CARDIOMYOPATHY,CHF HX OF ICD ECHOCARDIOGRAPHIC MEASUREMENTS (adult normal given) AC root (d.<3.7cm) 3.4 cm LV Septum d (<1.2 cm> 1.4 cm Valve Excursion 1.5 cm LV Septum (systole) 1.5 cm Left Atria (s.<4.0cm> 4.1 cm LVPW d(<1.2cm) 1.1 cm RV (d.<2.3cm) 5.3 cm LVPW (sytole) 1.2 cm LV diastole(<5.6CM) 5.7 cm MV E-F(>70mm/sec) cm LV systole 5.1 cm LVOT Diameter 2.0 cm MV exc.(>10mm) 1.1 cm Est.ejection fraction (50-75%) % DOPPLER: LVIT cm/sec A 116 cm/sec E 98.0 cm/sec LA cm/sec RVSP 92 mmHg LVOT 70 cm/sec AOP1/2T m/s Asc. Ao 110 cm/sec RVOT 48 cm/sec RA cm/sec PA 83 cm/sec AV Gradient Peak 4.84 mmHg AV Mean 2.52 mmHg AV Area 2.1 cm MV Gradient Peak 5.36 mmHg MV Mean 1.70 mmHg MV Area cm COMMENTS: Dragline Engineer: 2 IRENE GILMAN Creative Technologist: 4 Dr. Brito TAPE# PACS Pericardial Effusion N DATE OF SERVICE: PROCEDURE: Transthoracic echocardiogram. FINDINGS: 1. The left ventricle is dilated. There is global hypokinesis, ejection fraction 15% to 20%. 2. The left atrium is mildly dilated. 3. The aortic valve is normal. 4. The mitral valve has trace to mild mitral regurgitation. ECHOCARDIOGRAM REPORT [id number] ADAIR GUO 5. The tricuspid valve has severe tricuspid regurgitation. There is a wire artifact seen into the right ventricle, by history it is an ICD wire. The estimated pulmonary pressure is 92 mmHg. 6. The right ventricle is severely dilated. 7. The right atrium is severely dilated. CONCLUSIONS: The patient has a dilated cardiomyopathy with severe pulmonary hypertension. The patient also was shown to have significantly dyssynchronous wall motion. You can see that the bundle branch block is causing septal dyskinesis during systole and may be a candidate for resynchronization therapy based upon echo criteria. TRANSINT:[id number] Voice Confirmation ID: [id number] DOCUMENT ID: [id number] ALETHA BRITO MD at 0744 CC: [id number] DICTATION DATE: 03/22/18 0945 COLLAR SHAPER OPERATOR: 03/22/18 1015 DEP CLI 03/21/18 [facility] [address] [place] [address]
[~2018-03-21 08:24] MED LIST changes: +ASCORBIC ACID500 MG PO; +CARDIZEM LA120 MG PO; +CYCLOBENZAPRINE10 MG PO; +ENTRESTO 24 MG1 EACH PO; +FERROUS SULFAT325 MG PO; +HUMULIN R100 U/ML SC; +KEFLEX500 MG PO; +KLOR-CON M2020 MEQ PO; +PROAIR HFA8.5 GM INH
== END | disposition home or self-care (01) ==
LOC: D.ECHO 03-12 10:05
DX: I42.9 Cardiomyopathy, unspecified (principal); I50.9 Heart failure, unspecified; I25.10 Atherosclerotic heart disease of native coronary artery without angina pectoris